=== PATIENT | female | born 1955 | race Two or more races ===

== ENCOUNTER 2021-05-14 10:16 | Inpatient (IN) | payer BC ==
[~2021-05-14] VITALS: Ht 160 cm; Wt 70.8 kg
[2021-05-14] MEDS ORDERED: SINGULAIR10 MG PO (10:27)
[2021-05-14] MEDS ORDERED: DILTIAZEM ER120 M2 PO (10:29)
[2021-05-14] MEDS ORDERED: ECOTRIN81 MG PO (10:30)
[2021-05-15] MEDS ORDERED: BETAMETHASONE D15 GM (14:52)
[2021-05-15] MEDS ORDERED: CELECOXIB100 MG (14:52)
== END 2021-06-01 11:50 | disposition home or self-care (01) | DRG 603 ==
LOC: ER 10:16 → SURG 19:12
PROVIDERS: ADMIT Surgery; ATTEND Surgery
PROC: 02HV33Z Insertion of Infusion Device into Superior Vena Cava, Percutaneous Approach (ICD-10-PCS; 2021-05-15)
PROC: BW21ZZZ Computerized Tomography (CT Scan) of Abdomen and Pelvis (ICD-10-PCS; principal; 2021-05-20)
PROC: BW21YZZ Computerized Tomography (CT Scan) of Abdomen and Pelvis using Other Contrast (ICD-10-PCS; 2021-05-25)
DX: L02.211 Cutaneous abscess of abdominal wall (principal); I20.1 Angina pectoris with documented spasm; K44.9 Diaphragmatic hernia without obstruction or gangrene; D72.828 Other elevated white blood cell count; I10 Essential (primary) hypertension; R73.03 Prediabetes; R10.13 Epigastric pain; J45.998 Other asthma

== ENCOUNTER 2022-02-13 13:23 | Emergency (ER) | payer BC ==
[~2022-02-13] VITALS: Ht 160 cm; Wt 68.5 kg
[~2022-02-13 13:23] MED LIST: BETAMETHASONE D15 GM; CELECOXIB100 MG; DILTIAZEM ER120 M2 PO; ECOTRIN81 MG PO; SINGULAIR10 MG PO
== END 2022-02-13 16:25 | disposition home or self-care (01) ==
LOC: ER 13:23
DX: S23.41XA Sprain of ribs, initial encounter (principal); X58.XXXA Exposure to other specified factors, initial encounter; Y93.9 Activity, unspecified; Y92.9 Unspecified place or not applicable; Y99.9 Unspecified external cause status; Z88.8 Allergy status to other drugs, medicaments and biological substances; Z91.040 Latex allergy status; Z88.0 Allergy status to penicillin; Z91.013 Allergy to seafood